=== PATIENT | female | born 1980 | race Caucasian/White ===

== ENCOUNTER 2021-01-22 13:55 | Observation (INO) | payer OTHER, SELFPAY ==
[2021-01-22] VITALS (100 sets, daily range): BP systolic 102–183; BP diastolic 57–103; PULSE 69–84; RESP 12–20; TEMP 36.6–37; O2SAT 92–98; BMI 36.5
[2021-01-22] MEDS: 0.9% Saline Lock 10 ML Syringe IV ×3 (13:35→17:40)
[2021-01-22 13:54] LABS: Hematocrit 38.9 % (37-47); Hemoglobin 12.8 g/dL (12.0-15.0); Mean Corp Hgb Conc 32.9 g/dL (32-36); Mean Corpuscular Hgb 27.9 pg (27.0-32.0); Mean Corpuscular Volume 84.9 fL (81-99); Mean Platelet Vol. 9.6 fl (6.2-12.0); Platelet Count 364 K/mm3 (150-450); RBC Distribution Width CV 13.3 % (11.6-14.6); RBC Distribution Width SD 41.3 fl (35.1-43.9); Red Blood Count 4.58 M/mm3 (4.2-5.4); White Blood Count 10.2 K/mm3 (4.4-11.0)
[2021-01-22 14:12] LABS: AST(SGOT) 11 U/L (15-37); Alanine Aminotransfer ALT/SGPT 23 U/L (13-56); Creatinine, Serum 0.93 mg/dL (0.55-1.02); EST Glomerular Filtration Rate 70 mL/min (>60); Est Glom Filt Rate - Afr Amer 85 mL/min (>60); Estimated Creatinine Clearance 68.05 ml/min; Uric Acid 6.5 mg/dL (2.6-6.0)
[2021-01-22] MEDS: Labetalol (Prefilled) 20 MG/4 ML IV ×3 (14:13→16:38)
[2021-01-22] MEDS: Magnesium Sulfate 4gm/100mL 4 GM/100 ML IV.SOLN. IV (14:20)
[2021-01-22] MEDS: Lactated Ringers 1,000 ML 50 ML IV (14:20)
[2021-01-22] MEDS: Labetalol (Prefilled) 20 MG/4 ML 40 MG IV (14:37)
[2021-01-22] MEDS: Magnesium Sulfate 4gm/100mL 2 GM/50 ML IV.SOLN. IV (14:41)
[2021-01-22] MEDS: Magnesium Sulfate 20 GM/500 ML BAG IV (14:53)
[2021-01-22] MEDS: Labetalol 100 MG/20 ML Vial 80 MG IV (15:04)
[2021-01-22] MEDS: Labetalol 200 MG Tablet PO (15:55)
[2021-01-22] MEDS: hydrALAZINE 20 MG/ML Vial 5 MG IV (17:11)
[2021-01-22] MEDS: hydrALAZINE 20 MG/ML Vial 10 MG IV (17:39)
--- NOTE | 2021-01-22 18:11 | PCM.HP.OB ---
HPI - General General Date of Admission: 01/22/21 HPI Narrative BROOKLYN YEUNG, is a 40 F 10 para 10 who presents to labor and delivery in referral from Dr. Bain in [place]. Patient is approximately 2-1/2 weeks with high blood pressure. She is in good health otherwise and has had some blood pressure issues in the past but usually not after delivery. She is not on any blood pressure medications between pregnancies. She denies any -induced hypertension symptoms. [facility] Medical History (Updated 01/22/21 @ 18:[address] Teo Boland MD) Gestational HTN Pre-eclampsia Allergy/AdvReac Type Severity Reaction Status Date / Time No Known Allergies Allergy Verified 01/22/21 14:12 Family History no significant family his no significant family history Surgical History (Updated 01/22/21 @ 15:41 by Edilson Smith) History of tonsillectomy and adenoidectomy Social History Smoking Status: Never smoker ROS Constitutional Constitutional: Reports systems reviewed and no addt'l complaints, except as documented Eyes Eyes: Reports blurry vision bilateral (In the past few days but minimal now.) ENT HEENT: Reports systems reviewed and no addt'l complaints, except as documented Cardiovascular Cardiovascular: Reports systems reviewed and no addt'l complaints, except as documented Respiratory/Chest Respiratory/Chest: Reports systems reviewed and no addt'l complaints, except as documented Genitourinary Genitourinary: Reports systems reviewed and no addt'l complaints, except as documented Integumentary Integumentary: Reports systems reviewed and no addt'l complaints, except as documented Neurologic Neurologic: Reports systems reviewed and no addt'l complaints, except as documented Psychiatric Psychiatric: Reports systems reviewed and no addt'l complaints, except as documented Endocrine Endocrinology: Reports systems reviewed and no addt'l complaints, except as documented Hematologic/Lymphatic Hematologic/Lymphatic: Reports systems reviewed and no addt'l complaints, except as documented Allergic/Immunologic Allergic/Immunologic: Reports systems reviewed and no addt'l complaints, except as documented Vital Signs Vital Signs Vital Signs: 01/22/21 13:26 01/22/21 13:29 01/22/21 13:30 Temperature 98.6 F Temperature Source Temporal Pulse Rate 77 77 Respiratory Rate Respiratory Effort Respiratory Depth Respiratory Pattern Blood Pressure Blood Pressure Mean BP Systolic BP Diastolic Blood Pressure Source Blood Pressure Position Blood Pressure Location Pulse Ox 96 94 95 Oxygen Delivery Method 01/22/21 13:35 01/22/21 13:36 01/22/21 13:40 Temperature Temperature Source Pulse Rate 76 75 Respiratory Rate Respiratory Effort Respiratory Depth Respiratory Pattern Blood Pressure Blood Pressure Mean BP Systolic BP Diastolic Blood Pressure Source Blood Pressure Position Blood Pressure Location Pulse Ox 95 94 94 Oxygen Delivery Method 01/22/21 13:41 01/22/21 13:43 01/22/21 13:45 Temperature Temperature Source Pulse Rate 74 73 84 Respiratory Rate Respiratory Effort Respiratory Depth Respiratory Pattern Blood Pressure 180/86 H Blood Pressure Mean BP Systolic 180 BP Diastolic 86 Blood Pressure Source Blood Pressure Position Blood Pressure Location Pulse Ox 94 95 Oxygen Delivery Method 01/22/21 13:50 01/22/21 13:55 01/22/21 13:56 Temperature Temperature Source Pulse Rate 77 73 Respiratory Rate Respiratory Effort Respiratory Depth Respiratory Pattern Blood Pressure 174/93 H Blood Pressure Mean BP Systolic 174 BP Diastolic 93 Blood Pressure Source Blood Pressure Position Blood Pressure Location Pulse Ox 96 96 Oxygen Delivery Method 01/22/21 14:00 01/22/21 14:05 01/22/21 14:11 Temperature Temperature Source Pulse Rate 74 75 70 Respiratory Rate Respiratory Effort Respiratory Depth Respiratory Pattern Blood Pressure 183/103 H Blood Pressure Mean BP Systolic 183 BP Diastolic 103 Blood Pressure Source Blood Pressure Position Blood Pressure Location Pulse Ox 96 96 95 Oxygen Delivery Method 01/22/21 14:16 01/22/21 14:20 01/22/21 14:22 Temperature Temperature Source Pulse Rate 74 72 77 Respiratory Rate 18 Respiratory Effort Normal Respiratory Depth Normal Respiratory Pattern Normal Blood Pressure Blood Pressure Mean BP Systolic BP Diastolic Blood Pressure Source Blood Pressure Position Blood Pressure Location Pulse Ox 95 95 94 Oxygen Delivery Method Room Air 01/22/21 14:26 01/22/21 14:30 01/22/21 14:31 Temperature Temperature Source Pulse Rate 77 77 76 Respiratory Rate 20 H Respiratory Effort Respiratory Depth Respiratory Pattern Blood Pressure 172/95 H Blood Pressure Mean 120 BP Systolic 172 BP Diastolic 95 Blood Pressure Source Monitor Blood Pressure Position Semi-Fowlers Blood Pressure Location Right Arm Pulse Ox 95 94 94 Oxygen Delivery Method Room Air 01/22/21 14:36 01/22/21 14:41 01/22/21 14:44 Temperature Temperature Source Pulse Rate 81 80 81 Respiratory Rate 20 H Respiratory Effort Respiratory Depth Respiratory Pattern Blood Pressure 164/95 H Blood Pressure Mean 118 BP Systolic 164 BP Diastolic 95 Blood Pressure Source Monitor Blood Pressure Position Semi-Fowlers Blood Pressure Location Right Arm Pulse Ox 96 93 93 Oxygen Delivery Method Room Air 01/22/21 14:46 01/22/21 14:51 01/22/21 14:53 Temperature Temperature Source Pulse Rate 78 76 78 Respiratory Rate 20 H 20 H Respiratory Effort Respiratory Depth Respiratory Pattern Blood Pressure 160/91 H Blood Pressure Mean 114 BP Systolic 160 BP Diastolic 91 Blood Pressure Source Manual Blood Pressure Position Blood Pressure Location Right Arm Pulse Ox 92 92 94 Oxygen Delivery Method Room Air Room Air 01/22/21 14:54 01/22/21 14:56 01/22/21 15:01 Temperature Temperature Source Pulse Rate 78 77 71 Respiratory Rate 20 H Respiratory Effort Respiratory Depth Respiratory Pattern Blood Pressure 162/91 H Blood Pressure Mean 114 BP Systolic 162 BP Diastolic 91 Blood Pressure Source Monitor Blood Pressure Position Semi-Fowlers Blood Pressure Location Right Arm Pulse Ox 93 93 93 Oxygen Delivery Method Room Air 01/22/21 15:06 01/22/21 15:11 01/22/21 15:13 Temperature Temperature Source Pulse Rate 77 81 78 Respiratory Rate 20 H Respiratory Effort Respiratory Depth Respiratory Pattern Blood Pressure 169/95 H Blood Pressure Mean 119 BP Systolic 169 BP Diastolic 95 Blood Pressure Source Monitor Blood Pressure Position Semi-Fowlers Blood Pressure Location Right Arm Pulse Ox 94 94 94 Oxygen Delivery Method Room Air 01/22/21 15:16 01/22/21 15:18 01/22/21 15:19 Temperature Temperature Source Pulse Rate 78 77 Respiratory Rate 20 H Respiratory Effort Respiratory Depth Respiratory Pattern Blood Pressure 156/87 H Blood Pressure Mean 110 BP Systolic 156 BP Diastolic 87 Blood Pressure Source Monitor Blood Pressure Position Semi-Fowlers Blood Pressure Location Right Arm Pulse Ox 95 94 94 Oxygen Delivery Method Room Air 01/22/21 15:21 01/22/21 15:25 01/22/21 15:26 Temperature Temperature Source Pulse Rate 77 75 77 Respiratory Rate Respiratory Effort Respiratory Depth Respiratory Pattern Blood Pressure Blood Pressure Mean BP Systolic BP Diastolic Blood Pressure Source Blood Pressure Position Blood Pressure Location Pulse Ox 95 94 95 Oxygen Delivery Method 01/22/21 15:29 01/22/21 15:32 01/22/21 15:36 Temperature Temperature Source Pulse Rate 76 77 74 Respiratory Rate 20 H Respiratory Effort Respiratory Depth Respiratory Pattern Blood Pressure 149/86 H Blood Pressure Mean 107 BP Systolic 149 BP Diastolic 86 Blood Pressure Source Monitor Blood Pressure Position Semi-Fowlers Blood Pressure Location Right Arm Pulse Ox 94 94 94 Oxygen Delivery Method Room Air 01/22/21 15:38 01/22/21 15:39 01/22/21 15:41 Temperature Temperature Source Pulse Rate 75 75 Respiratory Rate 20 H Respiratory Effort Respiratory Depth Respiratory Pattern Blood Pressure 150/91 H Blood Pressure Mean 110 BP Systolic 150 BP Diastolic 91 Blood Pressure Source Monitor Blood Pressure Position Semi-Fowlers Blood Pressure Location Right Arm Pulse Ox 94 94 96 Oxygen Delivery Method Room Air 01/22/21 15:46 01/22/21 15:49 01/22/21 15:51 Temperature Temperature Source Pulse Rate 76 75 77 Respiratory Rate 20 H Respiratory Effort Respiratory Depth Respiratory Pattern Blood Pressure 158/96 H Blood Pressure Mean 116 BP Systolic 158 BP Diastolic 96 Blood Pressure Source Monitor Blood Pressure Position Semi-Fowlers Blood Pressure Location Right Arm Pulse Ox 95 95 95 Oxygen Delivery Method Room Air 01/22/21 15:56 01/22/21 15:59 01/22/21 16:01 Temperature Temperature Source Pulse Rate 73 72 73 Respiratory Rate 20 H Respiratory Effort Respiratory Depth Respiratory Pattern Blood Pressure 163/98 H Blood Pressure Mean 119 BP Systolic 163 BP Diastolic 98 Blood Pressure Source Monitor Blood Pressure Position Semi-Fowlers Blood Pressure Location Right Arm Pulse Ox 96 96 96 Oxygen Delivery Method Room Air 01/22/21 16:06 01/22/21 16:09 01/22/21 16:11 Temperature Temperature Source Pulse Rate 73 75 80 Respiratory Rate 20 H Respiratory Effort Respiratory Depth Respiratory Pattern Blood Pressure 161/100 H Blood Pressure Mean 120 BP Systolic 161 BP Diastolic 100 Blood Pressure Source Monitor Blood Pressure Position Semi-Fowlers Blood Pressure Location Right Arm Pulse Ox 96 96 97 Oxygen Delivery Method Room Air 01/22/21 16:16 01/22/21 16:19 01/22/21 16:29 Temperature Temperature Source Pulse Rate 75 80 74 Respiratory Rate 20 H 20 H Respiratory Effort Normal Respiratory Depth Normal Respiratory Pattern Normal Blood Pressure 150/75 H 172/91 H Blood Pressure Mean 100 118 BP Systolic 150 172 BP Diastolic 75 91 Blood Pressure Source Monitor Monitor Blood Pressure Position Semi-Fowlers Semi-Fowlers Blood Pressure Location Right Arm Right Arm Pulse Ox 96 96 Oxygen Delivery Method Room Air Room Air 01/22/21 16:39 01/22/21 16:44 01/22/21 16:49 Temperature 97.8 F Temperature Source Temporal Pulse Rate 73 75 74 Respiratory Rate 20 H 20 H Respiratory Effort Respiratory Depth Respiratory Pattern Blood Pressure 167/91 H 157/94 H Blood Pressure Mean 116 115 BP Systolic 167 157 BP Diastolic 91 94 Blood Pressure Source Monitor Monitor Blood Pressure Position Semi-Fowlers Semi-Fowlers Blood Pressure Location Right Arm Right Arm Pulse Ox 96 95 95 Oxygen Delivery Method Room Air Room Air 01/22/21 16:54 01/22/21 16:59 01/22/21 17:04 Temperature Temperature Source Pulse Rate 72 72 71 Respiratory Rate Respiratory Effort Respiratory Depth Respiratory Pattern Blood Pressure 162/100 H Blood Pressure Mean BP Systolic 162 BP Diastolic 100 Blood Pressure Source Blood Pressure Position Blood Pressure Location Pulse Ox 96 95 96 Oxygen Delivery Method 01/22/21 17:09 01/22/21 17:11 01/22/21 17:14 Temperature Temperature Source Pulse Rate 71 69 75 Respiratory Rate Respiratory Effort Respiratory Depth Respiratory Pattern Blood Pressure 165/100 H 165/100 H Blood Pressure Mean BP Systolic 165 BP Diastolic 100 Blood Pressure Source Blood Pressure Position Blood Pressure Location Pulse Ox 96 96 Oxygen Delivery Method 01/22/21 17:19 01/22/21 17:24 01/22/21 17:29 Temperature Temperature Source Pulse Rate 74 74 74 Respiratory Rate Respiratory Effort Respiratory Depth Respiratory Pattern Blood Pressure Blood Pressure Mean BP Systolic BP Diastolic Blood Pressure Source Blood Pressure Position Blood Pressure Location Pulse Ox 95 96 96 Oxygen Delivery Method 01/22/21 17:34 01/22/21 17:35 01/22/21 17:39 Temperature Temperature Source Pulse Rate 73 74 78 Respiratory Rate Respiratory Effort Respiratory Depth Respiratory Pattern Blood Pressure 168/97 H 168/97 H Blood Pressure Mean BP Systolic 168 BP Diastolic 97 Blood Pressure Source Blood Pressure Position Blood Pressure Location Pulse Ox 96 97 Oxygen Delivery Method 01/22/21 17:44 01/22/21 17:49 01/22/21 17:54 Temperature Temperature Source Pulse Rate 84 84 Respiratory Rate Respiratory Effort Respiratory Depth Respiratory Pattern Blood Pressure Blood Pressure Mean BP Systolic BP Diastolic Blood Pressure Source Blood Pressure Position Blood Pressure Location Pulse Ox 97 96 96 Oxygen Delivery Method 01/22/21 17:59 01/22/21 18:05 Temperature Temperature Source Pulse Rate 84 83 Respiratory Rate Respiratory Effort Respiratory Depth Respiratory Pattern Blood Pressure 134/76 H Blood Pressure Mean BP Systolic 134 BP Diastolic 76 Blood Pressure Source Blood Pressure Position Blood Pressure Location Pulse Ox 96 94 Oxygen Delivery Method Weight Weight: 212 lb 15.465 oz Body Mass Index (BMI) 36.5 Physical Exam Const alert, oriented x3, no apparent distress, average body habitus, no limitations and healthy appearing General Appearance: cooperative and comfortable Orientation / Consciousness: awake, oriented to person, oriented to place and oriented to time Exam Limitations: no limitations HEENT normocephalic and hearing grossly normal bilaterally Head and Scalp: normocephalic Face and Sinus: normal facial exam Eyes PERRL, EOMs intact bilaterally and conjunctivae normal General Eye: normal appearance of both eyes Pupil: PERRL Neck full ROM and supple General: normal visual inspection Chest inspection of chest normal Resp normal respiratory effort, normal air movement and no retractions Effort and Inspection: able to speak in complete sentences Cardio Rate: regular rate Rhythm: regular rhythm GI normal to inspection, nondistended, normoactive bowel sounds Back/Spine normal ROM and normal to inspection Cervical Spine: cervical ROM normal Extremity normal to inspection and full ROM Skin General Skin Exam: no breakdown Hair: normal Neuro oriented x3, CN's II-XII intact bilaterally, moves all extremities and deep tendon reflexes 2+ bilaterally Sensorium / Orientation: awake, alert, oriented to person, oriented to place and oriented to time Speech: speech normal Psych mental status grossly normal, thought process normal, cooperative and affect normal Appearance: grossly normal, appropriate and well royal centert Labs Labs Labs: Hct 38.9 % (37-47) Hgb 12.8 g/dL (12.0-15.0) Assessment & Plan (1) induced hypertension, : PLAN: Hypertensive protocol initiated and blood pressures controlled with IV labetalol and hydralazine. Magnesium sulfate running. Discussed with patient need to monitor closely and plan to discontinue magnesium sulfate tomorrow if oral medications are controlling blood pressure adequately. PIH labs normal with elevated uric acid.
[2021-01-22] MEDS: hydrALAZINE 10 MG Tablet 20 MG PO (18:21)
--- NOTE | 2021-01-22 19:34 | NURSING ---
pt reports only feeling pain in head when lying flat on her back, states she has no pain at this time
--- NOTE | 2021-01-22 19:35 | NURSING ---
BP taken at 1924 10 minutes after pt had been resting in bed following ambulation to bathroom, RN to continue to follow antihypertensive recovery protocol after this time
--- NOTE | 2021-01-22 19:45 | NURSING ---
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
[2021-01-23] VITALS (40 sets, daily range): BP systolic 110–167; BP diastolic 58–92; PULSE 77–91; RESP 12–18; TEMP 36.4–37.1; O2SAT 92–97
[2021-01-23] MEDS: Magnesium Sulfate 20 GM/500 ML BAG IV ×2 (00:03→09:24)
[2021-01-23] MEDS: hydrALAZINE 10 MG Tablet 20 MG PO ×5 (02:00→22:59)
--- NOTE | 2021-01-23 07:01 | NURSING ---
report given to Michael Buchanan RN who is assuming care of pt at this time
[2021-01-23] MEDS: Labetalol 200 MG Tablet PO ×3 (09:23→14:57)
[2021-01-23] MEDS: Lactated Ringers 1,000 ML 50 ML IV (09:24)
--- NOTE | 2021-01-23 09:43 | NURSING ---
Per Dr. Boland, discontinue IV fluids and magnesium. Monitor blood pressure every 2 hours. Trandate order will be changed to TID per Dr. Boland.
[2021-01-23] MEDS: 0.9% Saline Lock 10 ML Syringe IV ×2 (09:46→19:36)
--- NOTE | 2021-01-23 09:49 | NURSING ---
Per Dr. Boland, no fluid restriction at this time.
--- NOTE | 2021-01-23 09:51 | PCM.PN.OB ---
Subjective Subjective Patient without complaints. Patient presently on magnesium sulfate 2 g/h, labetalol 200 mg twice daily and hydralazine 20 mg 3 times daily. Blood pressures stable and marginally high. Minimal symptoms although patient reports some intermittent pressure in the back of her head and neck but less than prior to admission. Objective Data Objective Data Vital Signs: Vital Signs Temp Pulse Resp BP Pulse Ox 97.8 F 86 18 124/68 H 96 01/23/21 07:24 01/23/21 09:22 01/23/21 09:22 01/23/21 09:22 01/23/21 07:24 Oxygen Delivery Method Room Air Weight: 212 lb 15.465 oz Body Mass Index (BMI) 36.5 Intake & Output: Intake and Output for Last 24 Hours 01/21/21 01/22/21 01/23/21 23:59 23:59 23:59 Intake Total 1427.50 / 1427.50 2341.66 / 2341.66 Output Total 1500 / 1500 1100 / 1100 Balance -72.50 / -72.50 1241.66 / 1241.66 Lab / Micro Data Result Diagrams: 01/22/21 13:35 01/22/21 13:35 Labs: Laboratory Results - last 24 hr 01/22/21 13:35: WBC 10.2, RBC 4.58, Hgb 12.8, Hct 38.9, MCV 84.9, MCH 27.9, MCHC 32.9, RDW Std Deviation 41.3, RDW Coeff of Radha 13.3, Plt Count 364, MPV 9.6 01/22/21 13:35: Creatinine 0.93, Estim Creat Clear Calc 68.05, Est GFR (MDRD) Af Amer 85, Est GFR (MDRD) Non-Af 70, Uric Acid 6.5 H, AST 11 L, ALT 23 Assessment & Plan (1) induced hypertension, : PLAN: Well-controlled with magnesium sulfate, p.o. labetalol and hydralazine. Will increase labetalol to 200 3 times daily and continue hydralazine 20 mg 3 times daily. Will discontinue magnesium sulfate this morning. Discussed going home late today or tomorrow if pressures are able to be stabilized with oral medications.
--- NOTE | 2021-01-23 13:50 | NURSING ---
Dr. Boland called to update on patient's blood pressures. Continue to monitor and call Dr. Boland with an update at 1600, which will be 6 hours after stopping the magnesium.
--- NOTE | 2021-01-23 15:08 | NURSING ---
Report given to Enedelia Leslie RN, who will now assume care of this patient at this time.
--- NOTE | 2021-01-23 16:10 | PCM.DC ---
Discharge Instructions Diet Discharge Diet: No restrictions Activity Additional Activity Instructions:: Bedrest until seen by physician. Call with increasing headaches, visual changes, or abdominal pain. Follow Up Care Please Follow Up With: Wil Bain DO When: 1-2 days Test Results: Test results from this visit will be discussed in further detail at your follow-up appointment, if applicable. Discharge Plan Admission Admit Date/Time: 01/22/21 13:55 Primary Reason for Your Visit: Hypertension Attending Provider: Teo Boland Discharge Orders/Prescriptions Prescriptions: New nifedipine 30 mg Tablet Extended Release 24hr 30 mg PO DAILY Qty: 30 RF: 0 labetalol 200 mg Tablet 400 mg PO BID Qty: 60 RF: 0
[2021-01-23] MEDS: Labetalol 200 MG Tablet 400 MG PO (21:38)
--- NOTE | 2021-01-23 23:00 | NURSING ---
Pt BP 161/90 taken initially with medium size cuff which borderline fits pt, BP immediately rechecked with result 151/81 using large cuff which fits pt more appropriately, RN to recheck 15min BP with appropriately sized cuff to assess need for emergency treatment via antihypertensive protocol
[2021-01-24 04:41] VITALS: BP 144/79; PULSE 74; RESP 16; TEMP 37.1; O2SAT 96
--- NOTE | 2021-01-24 07:30 | NURSING ---
report given to Timothy Jones RN who is assuming care of pt at this time
[2021-01-24 07:33] VITALS: BP 143/81; PULSE 73
--- NOTE | 2021-01-24 07:36 | NURSING ---
Pt requests homegoing medications be delivered to her room from [facility] retail pharmacy with refills to be filled at [facility] in [place]
[2021-01-24 07:40] VITALS: BP 143/81; PULSE 73; RESP 18; TEMP 37.1; O2SAT 97
[2021-01-24] MEDS: NIFEdipine 30 MG Tablet PO (09:29)
[2021-01-24] MEDS: Labetalol 200 MG Tablet 400 MG PO (10:23)
--- NOTE | 2021-01-24 10:23 | PCM.PN.OB ---
Subjective Subjective Patient without complaints. Feeling better today with headache gone. We will add Procardia XL 30 mg daily, continue labetalol 400 twice daily, and attempt to discontinue Apresoline in preparation for going home later this afternoon. Blood pressures remain mild to marginally high in the 140s over 80s. Objective Data Objective Data Vital Signs: Vital Signs Temp Pulse Resp BP Pulse Ox 98.8 F 73 18 143/81 H 97 01/24/21 07:40 01/24/21 07:40 01/24/21 07:40 01/24/21 07:40 01/24/21 07:40 Oxygen Delivery Method Room Air Weight: 212 lb 15.465 oz Body Mass Index (BMI) 36.5 Intake & Output: Intake and Output for Last 24 Hours 01/22/21 01/23/21 01/24/21 23:59 23:59 23:59 Intake Total 1427.50 / 1427.50 3041.66 / 3041.66 Output Total 1500 / 1500 3150 / 3150 525 / 525 Balance -72.50 / -72.50 -108.34 / -108.34 -525 / -525 Lab / Micro Data Result Diagrams: 01/22/21 13:35 01/22/21 13:35 Assessment & Plan (1) induced hypertension, : PLAN: Plan to discharge home with labetalol and Procardia. I offered to follow-up in our office or she can see her primary care physician later this week. She opted to see her primary care physician Dr. Bain. We discussed the need to call or come in with increasing headaches and to monitor blood pressures at home. Also encouraged bedrest for the next 1 to 2 weeks.
--- NOTE | 2021-01-24 10:24 | NURSING ---
dr terence guillaume into see pt- dr guillaume states that he wants to hold the 10:00 Apresoline for now to see what her BP does with the procardia and trandate; wants BP checked and called to him at noon
[2021-01-24 11:53] VITALS: BP 134/75; PULSE 82
[2021-01-24 12:19] VITALS: BP 134/75; PULSE 86
== END 2021-01-24 13:30 | disposition home or self-care (01) ==
LOC: WPOUT 01-24 16:38
PROVIDERS: Admitting Provider Obstetrics & Gynecology; Visit Provider Obstetrics & Gynecology
DX: O13.5 Gestational [pregnancy-induced] hypertension without significant proteinuria, complicating the puerperium (principal)
CPT/HCPCS: 96374; 96375; 96376 ×2; 36415; 82565; 84450; 84460; 84550; 85027; 94760; 99218; J7120; A4216; G0378